=== PATIENT | female | born 1960 | race Caucasian/White ===

== ENCOUNTER → 2017-03-16 | Day surgery (SDC) | payer BC ==
[~2017-03-16] VITALS: Ht 161.3 cm; Wt 72.6 kg
[~2017-03-16] MED LIST: AMLO5TAB2 PO; BUPIVACAINE HCL 0.5% 30 ML VIAL As Ordered ONE; DITR1TAB PO; HYDR-3713 PO; LIDOCAINE 1% SDV INJ 30 ML VIAL As Ordered ONE; LIDOCAINE 2% INJ 100 MG/5 ML SDV (FOR ANES.) As Ordered ONE; LR 1,000 ML IV SCH; METOCLOPRAMIDE INJ 10MG/2ML VIAL (J2765) As Ordered ONE; METOCLOPRAMIDE INJ 10MG/2ML VIAL (J2765) IV ONE; MIDAZOLAM INJ 2 MG/2 ML VIAL (J2250) As Ordered ONE; ONDA4TAB6 PO; ONDANSETRON 4MG/2ML VIAL (J2405) As Ordered ONE; ONDANSETRON 4MG/2ML VIAL (J2405) IV PRN; PERCOCET 5MG/325MG TAB PO PRN; PROPOFOL 200 MG/20 ML VIAL As Ordered ONE; URSO250T2 PO; VESI10TA PO; ZOFR20TA PO; [UNRECOGNIZED DRUG - CODE] PO; dexameTHASONE 4 MG/ML 1ML VIAL (J1100) As Ordered ONE; fentaNYL 100 MCG/2 ML INJECTION (J3010) As Ordered ONE
--- NOTE | 2017-03-16 09:45 | REP ---
Right foot series: Limited study two views. History: Hallux valgus. Findings: A sequence of two last image hold fluoroscopically obtained procedural spot radiographs document osteotomy and pinning of the distal first metatarsal and the proximal phalanx of the great toe. Fluoroscopy time is reported at 5 seconds. Signed by Bassam Bullard MD 03/16/2017 12:17 P
[2017-03-16 11:30] VITALS: BP 113/68
--- NOTE | 2017-03-16 11:37 | RO ---
DATE OF PROCEDURE: 03/16/2017 PREPROCEDURE DIAGNOSIS: Right foot bunion, hallux valgus. POSTPROCEDURE DIAGNOSIS: Right foot bunion, hallux valgus. PROCEDURE: Right foot bunionectomy with 1st metatarsus osteotomy and Vincent osteotomy. SURGEON: Dr. Malcom Garcia. HOURLY CAREGIVER: None. ANESTHESIA: Monitored anesthesia care with preop injection of 1:1 mixture of 1% lidocaine plain in 0.5% Marcaine plain, 18 mL. HEMOSTASIS: Pneumatic ankle tourniquet. ESTIMATED BLOOD LOSS: Minimal. MATERIALS: Arthrex 3.5 headless screw and 2.5 headless screw #3-0 and #4-0 Vicryl, #4-0 nylon. INJECTABLES: 1 mL Decadron 4 mg/4 mL. COMPLICATIONS: None. CONDITION: Stable. Diane santos is a 56-year-old female who presents to [facility] with complaints of painful bunion. She presents today for surgical correction. The patient's side and site were identified and marked in the preoperative holding area. Consent was reviewed and obtained. All risks, complications and alternatives to the procedure explained to the patient in detail. All questions were answered. DESCRIPTION OF PROCEDURE: The patient was brought to the operating room and placed on the operating room table in the supine position. Monitored anesthesia care was delivered by the anesthesia team. Preoperative injection of 14 mL of 1:1 mixture of 1% lidocaine plain and 1/2% Marcaine plain were injected to the right foot. The right foot was prepped and draped in normal sterile fashion. The patient received Ancef preoperatively. A tourniquet was applied to the right ankle and inflated at 250 mmHg. A dorsal medial incision was drawn and carried through with a #15 blade. Dissection was carried down until the metatarsophalangeal joint capsule was identified. Bovie was used to maintain hemostasis. A T capsulotomy was performed exposing the metatarsal head. Following this, a lateral release was performed releasing the adductor tendon, lateral capsule, and sesamoidal ligaments. The McGlamry elevator was used to free the plantar structures of the metatarsal head. Next, the medial eminence was resected with the sagittal saw. An osteotomy was performed in the metatarsal head transposing it laterally. This was fixated with an Arthrex 3.5 headless screw. The remaining bone edges was removed with sagittal saw and smooth with a rasp. The site was irrigated with normal saline. Next, attention was drawn to the proximal phalanx. The overlying capsule and soft tissue was freed exposing the bone and the proximal phalanx. A wedge was remove with a base of the wedge medial effectively improving the position of the hallux in a more medial position. This was fixated with an Arthrex 2.5 headless screw. The position was verified on C-arm. The site was irrigated with normal saline. A wedge of capsule was removed from the medial and the tarsophalangeal joint capsule and capsular closure was performed with #3-0 Vicryl. Subcutaneous closure with #4-0 Vicryl and skin closure with #4-0 nylon. 1 mL of Decadron was injected. Following this sterile dressings were applied. The tourniquet was deflated. The patient was brought to the postanesthesia care unit with vital signs stable, neurovascular status intact. She will be partial weightbearing to the right foot. She will followup in the office in 2 days.
== END | disposition home or self-care (01) ==
LOC: M SDC 06:08
PROVIDERS: ATTEND Podiatrist Foot & Ankle Surgery
DX: M20.11 Hallux valgus (acquired), right foot (principal); M21.611 Bunion of right foot; K21.9 Gastro-esophageal reflux disease without esophagitis; K90.0 Celiac disease; I10 Essential (primary) hypertension; K74.3 Primary biliary cirrhosis; R32 Unspecified urinary incontinence; Z90.710 Acquired absence of both cervix and uterus; Z79.899 Other long term (current) drug therapy
CPT/HCPCS: 28298; 73630; 88300; 97116; A4649; C1713; J0690; J1100; J2250; J2405; J2765; J3010